=== PATIENT | male | born 1980 ===

== ENCOUNTER 2025-06-24 09:47 | Emergency (ER) | payer OTHER ==
[~2025-06-24] VITALS: Ht 193 cm; Wt 106.6 kg
--- NOTE | 2025-06-24 09:58 | ERN ---
General Chief Complaint: Foreign Body Stated Complaint: RIGHT FOOT FOREIGN BODY, STING RAY Time Seen by MD: 09:51 Source: patient History of Present Illness Initial Comments Patient is a 44-year-old male coming in complaining of right foot/ right ankle possible foreign body. [place] felt as if something stung him or he stepped on a wire. It does not know his tetanus status. Allergies: Coded Allergies: No Known Allergies (Unverified Allergy, Unknown, 06/24/25) Past Medical History Past Medical History: No Pertinent History Past Surgical History: Appendectomy, Other Surgical History Other: SINUS ROS Dictation CONSTITUTIONAL: No chills, no fever, no weakness, no diaphoresis, no malaise. HEAD/FACE: No signs of trauma. EENT: No eye pain, no blurred vision, no tearing, no double vision, no ear pain, no ear discharge, no nose pain, no nasal congestion, no throat pain, no throat swelling, no mouth pain. RESPIRATORY: No cough, no orthopnea, no SOB, no stridor, no wheezing. CARDIOVASCULAR: No chest pain, no edema, no palpitations, no syncope. GASTROINTESTINAL/ABDOMINAL: No abdominal pain, no constipation, no diarrhea, no nausea, no vomiting. GENITOURINARY: No abnormal discharge, no dysuria, no frequent urination, no hematuria. No complaints of pain in the genitals. MUSCULOSKELETAL: No back pain, no gout, no joint pain, no joint swelling, no muscle pain, no muscle stiffness, no neck pain. INTEGUMENTARY: No change in color, no change in hair/nails, no dryness, lesion, no lumps, no rash. NEUROLOGICAL/PSYCH: No anxiety, not depressed, no emotional problem, no headache, no numbness, no pre-existing deficit, no history of seizures, no tremors, no weakness. HEMATOLOGIC/LYMPHATIC: Not anemic, no history of blood clots, no apparent bleeding, no bruising, glands not swollen. All Systems Negative, Except as Noted. Physical Exam Physical Exam Dictation VITAL SIGNS: Reviewed. GENERAL APPEARANCE: Alert, oriented x3, no acute distress, obese. HEAD AND FACE: Non-traumatic. EYES: PERRL, pink conjunctivas, eyelid no trauma, anterior chamber clear. EARS: Pinnas intact and no signs of trauma or erythema. Ear canals clear and no discharge. TMs no erythema. NOSE: No discharge, no bleeding. OROPHARYNX: Mouth normal, teeth no caries, tongue pink. Pharynx clear, no erythema. Tonsils no exudates, no abscesses noted. Mucous membrane moist. NECK: Supple, non-tender, no thyromegaly, no masses, no JVD, no bruits. BREAST: Deferred. CHEST: No tenderness, no crepitus, no paradoxical movement, no retractions. LUNGS: Clear, well-ventilated, symmetric, no rales, no wheezing, no rhonchi, no stridor, good breath sounds bilaterally. HEART: Regular rate, regular rhythm, no murmur, no gallops. VASCULAR: No peripheral edema. ABDOMEN: Soft, positive bowel sounds, nondistended, no guarding, nontender, no rebound, no masses no hepatomegaly, no splenomegaly, no Saab's sign, no hernias. RECTAL: Deferred. GENITAL: Deferred. NEUROLOGICAL: Normal speech, gross motor function intact, gross sensory function intact. MUSCULOSKELETAL: Neck nontender, full range of motion, back nontender, full range of motion. EXTREMITIES: Nontender, full range of motion. SKIN: Color pink, dry, no turgor, no rash, no lacerations, no abrasions, no contusions. Right medial malleolar puncture wound LYMPHATICS: Deferred. Results Laboratory and Microbiology Labs Reviewed?: Yes EKG/XRAY/US/CT/MRI X-RAY Comment [place] [address] [place] [id number] IMAGING REPORT Signed PATIENT: GERI PATEL MR#: [id number] : 1980 SEX: M AGE: 44 LOCATION: [facility] ORDER STATUS: REG REPORT#: [id number] SERVICE REASON: rule out foreign body ORDERING PHYSICIAN: CITLALY JO MD PROCEDURE: [id number] - ANKLE COMP 3VWS RT EXAM: CR right ankle, 3 View. CLINICAL HISTORY: rule out foreign body COMPARISON: None provided. FINDINGS: BONES: No acute fracture or aggressive appearing osseous lesion. JOINTS: The joint spaces appear within normal limits. No dislocation. No radiographic evidence of a joint effusion. SOFT TISSUES: No radiopaque foreign bodies. Mild soft tissue swelling overlying the lateral malleolus. IMPRESSION: 1. No acute osseous injury. 2. Mild soft tissue swelling overlying the lateral malleolus. 3. No radiopaque foreign bodies identified. /[place] DICTATED BY: TERRELL GARCIA MD DATE: 06/24/251129 ELECTRONICALLY SIGNED BY: TERRELL GARCIA MD DATE: 06/24/251129 MDM MDM: Differential diagnosis: For wound, foreign body, Rationale: Tests considered and ordered secondary to shared decision making include: Previous outside records reviewed: Old ER visits. Risk of complication and/or morbidity or mortality of patient management: None Medications-Per medication reconciliation Need for hospitalization: Patient does not meet criteria for hospitalization. Need for emergency major/minor surgery: No Patient is a 44-year-old male coming in complaining of right medial ankle pain. He states that he might have stepped on a stingray or got poked by a foreign body. X-ray did not disclose acute findings. Wound was thoroughly irrigated lidocaine was infused. Patient will be discharged with a posterior splint I did advise him rice technique to decrease inflammation. ED Course Orders Procedure Category Date Status Time Ankle Comp 3vws Rt RAD 06/24/25 Resulted 09:52 Tetanus,Diphtheria PHA 06/24/25 Complete Tox [Adult] (Diphther 10:00 Acetaminophen 500mg PHA 06/24/25 Complete Tab (Tylenol 500mg T 10:30 Orphenadrine Citrate PHA 06/24/25 Complete (Norflex) 11:00 Ketorolac PHA 06/24/25 Complete Tromethamine 30mg/Ml 11:00 *Nursing CPOE 06/24/25 Transmitted Communication: 11:16 Current Medications Medications (Trade) Dose Ordered Sig/Denzel Route PRN Reason Start Time Stop Time Status Last Admin Dose Admin Acetaminophen (TYLenol 500MG TAB) 1,000 mg ONCE ONCE PO 06/24/25 10:30 06/24/25 10:31 DC Ketorolac Tromethamine (toRADol) 30 mg ONCE ONCE IM 06/24/25 11:00 06/24/25 11:01 DC 06/24/25 10:45 Orphenadrine Citrate (Norflex) 60 mg ONCE ONCE IM 06/24/25 11:00 06/24/25 11:01 DC 06/24/25 10:44 Tetanus/ Diphtheria Toxoids Adsorbed (DiphthERIA-teTANUS TOXOID [ADULT]/ DECAVAC) 0.5 ml ONCE ONCE IM 06/24/25 10:00 06/24/25 10:01 DC 06/24/25 10:18 Vital Signs Date Time Temp Pulse Resp B/P (MAP) Pulse Ox O2 Delivery O2 Flow Rate FiO2 06/24/25 11:15 97.9 86 16 133/90 96 Room Air* 0 21 06/24/25 09:52 97.9 86 16 133/90 97 Room Air* 0 21 06/24/25 09:48 97.9 90 16 133/90 96 Room Air 0 Procedure Dictation Right puncture wound- cleaned thoroughly using NS and iodine flushed inside, lidocaine was used for local anesthesia. Wound was covered with nonadhesive dressing posterior splint was placed to help secure ankle and reduce inflammation. DX & DISP Disposition: Discharge Departure Impression: Primary Impression: Puncture wound of right ankle Condition: Stable Scripts Cephalexin Monohydrate (Keflex) 500 Mg Cap 1 CAP PO TID for 10 Days, #30 CAP 0 Refills Prov: CITLALY JO MD 06/24/25 Naproxen (Naproxen) 500 Mg Tablet 1 TAB PO BID for pain for 7 Days, #14 TAB 0 Refills Prov: CITLALY JO MD 06/24/25 Additional Instructions: FOLLOW-UP WITH PRIMARY CARE PROVIDER IN 1 TO 2 DAYS. TAKE MEDICATIONS DIRECTED HERE IN THE EMERGENCY ROOM. OKAY TO CONTINUE HOME MEDICATIONS UNLESS OTHERWISE DISCUSSED DURING YOUR VISIT IN THE EMERGENCY ROOM TODAY. RETURN TO YOUR NEAREST EMERGENCY ROOM IF SYMPTOMS WORSEN OR IF THERE IS NO IMPROVEMENT. CALL 911 IF YOU NEED IMMEDIATE ASSISTANCE. TAKE TYLENOL [id number] NEEDED AND IF NO CONTRAINDICATIONS ARE PRESENT. INCREASE ORAL HYDRATION. A WOUND CULTURE OR URINE CULTURE WAS ORDERED HERE IN THE EMERGENCY ROOM DEPARTMENT PLEASE FOLLOW-UP WITH PRIMARY CARE PROVIDER AND ADVISE THEM TO GET REPORTS FROM OUR FACILITY. IF YOU HAD ANY CESAR WRAP/SPLINTS THAT WERE APPLIED HERE, PLEASE DO NOT REMOVE THEM UNTIL YOU SEE YOUR PRIMARY CARE OR SPECIALTY. Referrals: Referrals: SELF,REFERRAL (PCP) LEAH CONNOR MD Time of Disposition: 11:25 CITLALY JO MD Jun 24, 2025 09:58
--- NOTE | 2025-06-24 10:31 | HMCIMG ---
EXAM: CR right ankle, 3 View. CLINICAL HISTORY: rule out foreign body COMPARISON: None provided. FINDINGS: BONES: No acute fracture or aggressive appearing osseous lesion. JOINTS: The joint spaces appear within normal limits. No dislocation. No radiographic evidence of a joint effusion. SOFT TISSUES: No radiopaque foreign bodies. Mild soft tissue swelling overlying the lateral malleolus. IMPRESSION: 1. No acute osseous injury. 2. Mild soft tissue swelling overlying the lateral malleolus. 3. No radiopaque foreign bodies identified. /[place]
[2025-06-24] MEDS: ORPHENADRINE 60MG/2ML IM ONE (10:44)
[2025-06-24 11:15] VITALS: BP 133/90; PULSE 86; RESP 16; TEMP 97.9; O2SAT 96
--- NOTE | 2025-06-24 11:18 | NUR ---
RT SPLINT AND CRUTCHES GIVEN TO PT, PT TOLERATED WELL
[2025-06-24] MEDS ORDERED: CEPH500B PO (11:26)
[2025-06-24] MEDS ORDERED: NAPR-1194 PO (11:26)
== END 2025-06-24 12:01 | disposition home or self-care (01) ==
LOC: EDH 09:47
DX: S91.031A Puncture wound without foreign body, right ankle, initial encounter (principal); Z90.49 Acquired absence of other specified parts of digestive tract; W22.8XXA Striking against or struck by other objects, initial encounter; Y93.89 Activity, other specified; Y92.89 Other specified places as the place of occurrence of the external cause; Y99.8 Other external cause status
CPT/HCPCS: 99284; 29515; 90714; 73610; 96372 ×2; 90471; J1885; J2360